=== PATIENT | female | born 2000 | race Caucasian/White ===

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

== ENCOUNTER 2020-10-26 12:27 | Emergency (ER) | payer OTHER ==
[~2020-10-26] VITALS: Ht 177.8 cm; Wt 63.5 kg
--- NOTE | 2020-10-26 12:34 | NUR ---
PT AMBULATED TO BED 07
[2020-10-26 12:36] VITALS: BP 124/69
[2020-10-26] MEDS ORDERED: DICYCLOMINE HCL LIQUID 20 MG, ALUMINUM HYD/MAG/SIMETHICONE 30 ML, LIDOCAINE VISCOUS 2% ... PO ONE ×3 (12:50)
[2020-10-26] MEDS ORDERED: OMEP40EC24 PO (12:51)
--- NOTE | 2020-10-26 12:51 | NUR ---
19 YEAR OLD FEMALE COMPLAINS OF EPIGASTRIC PAIN THAT RADIATES TO THROAT X YESTERDAY. PT STATES PAIN ACCOMPANIED BY NAUSEA, NO VOMITTING. PT AOX4, BREATHING EVEN AND UNLABORED, SKIN WARM AND DRY. BED IN LOWEST POSITION, LOCKED, BED RAIL UPX1. PMH - NAUSEA ALLERGIES - SHELLFISH
[2020-10-26] MEDS ORDERED: ALUMINUM HYD/MAG/SIMETHICONE 30 ML UDC ONE (12:55)
[2020-10-26] MEDS ORDERED: DICYCLOMINE HCL LIQUID 10 MG/5 ML UDC ONE (12:56)
--- NOTE | 2020-10-26 13:09 | NUR ---
PT UNABLE TO URINATE AT THIS TIME. ERMD AWARE
[2020-10-26 13:21] LABS: BASOPHILS % (AUTO) 0.7 % (0.0-2.0); EOSINOPHILS # (AUTO) 0.1 K/uL (0-0.4); EOSINOPHILS % (AUTO) 1.4 % (0.0-4.0); HEMATOCRIT 41.8 % (36-48); LYMPHOCYTES # (AUTO) 1.9 K/uL (2.5-16.5); LYMPHOCYTES % (AUTO) 31.9 % (20.5-51.1); MEAN CORPUSCULAR HEMOGLOBIN 31 pg (27-31); MEAN CORPUSCULAR HGB CONC 34 g/dL (33-37); MEAN CORPUSCULAR VOLUME 92.3 fL (80-94); MONOCYTES # (AUTO) 0.4 K/uL (0.8-1.0); MONOCYTES % (AUTO) 6.8 % (1.7-9.3); NEUTROPHILS # (AUTO) 3.5 K/uL (1.8-7.7); NEUTROPHILS % (AUTO) 59.2 % (42.2-75.2); PLATELET COUNT (AUTO) 149 K/uL (140-450); RED BLOOD CELL COUNT(AUTO) 4.53 MIL/uL (4.20-5.40); RED CELL DISTRIBUTION WIDTH 12.2 % (11.6-13.7)
--- NOTE | 2020-10-26 13:35 | NUR ---
Patient discharged with v/s stable. Written and verbal after care instructions about GERD given and explained. Patient alert, oriented and verbalized understanding of instructions. Ambulatory with steady gait. All questions addressed prior to discharge. ID band removed. Patient advised to follow up with PMD. Rx of prilosec given. Patient educated on indication of medication including possible reaction and side effects. Opportunity to ask questions provided and answered.
[2020-10-26 13:36] VITALS: BP 124/69
[2020-10-26 13:38] LABS: ALBUMIN 4.8 g/dL (3.4-5.0); ANION GAP 11.6 (8-16); CARBON DIOXIDE 27.1 mmol/L (21-32); CREATININE 0.9 mg/dL (0.6-1.3); POTASSIUM 3.7 mmol/L (3.5-5.1); TOTAL BILIRUBIN 0.8 mg/dL (0.0-1.0)
== END 2020-10-26 13:35 | disposition home or self-care (01) ==
LOC: MED 12:27
DX: K21.9 Gastro-esophageal reflux disease without esophagitis (principal); R07.0 Pain in throat; J45.909 Unspecified asthma, uncomplicated; Z79.899 Other long term (current) drug therapy
CPT/HCPCS: 36415; 80053; 81002; 81025; 85025; 99283

== ENCOUNTER 2021-01-19 18:33 | Emergency (ER) | payer OTHER ==
[~2021-01-19] VITALS: Ht 175.3 cm; Wt 63.5 kg
[~2021-01-19 18:33] MED LIST: OMEP40EC24 PO
[2021-01-19 18:47] VITALS: BP 107/77
--- NOTE | 2021-01-19 18:50 | NUR ---
PT TO AWAIT IN TENT
--- NOTE | 2021-01-19 19:25 | NUR ---
NOVEL SWAB OBTAINED AND SENT TO LAB
[2021-01-19] MEDS ORDERED: GUAI-649 PO (19:27)
[2021-01-19] MEDS ORDERED: FLONAS NS (19:27)
--- NOTE | 2021-01-19 19:40 | NUR ---
Patient discharged with v/s stable. Written and verbal after care instructions given and explained. Patient alert, oriented and verbalized understanding of instructions. Ambulatory with steady gait. All questions addressed prior to discharge. ID band removed. Patient advised to follow up with PMD. Rx of FLONASE given. Patient educated on indication of medication including possible reaction and side effects. Opportunity to ask questions provided and answered.
== END 2021-01-19 19:40 | disposition home or self-care (01) ==
LOC: MED 18:33
DX: J06.9 Acute upper respiratory infection, unspecified (principal); Z20.822 Contact with and (suspected) exposure to COVID-19
CPT/HCPCS: 99283; U0003

== ENCOUNTER 2021-06-23 18:26 | Emergency (ER) | payer OTHER ==
[~2021-06-23] VITALS: Ht 177.8 cm; Wt 64.0 kg
[~2021-06-23 18:26] MED LIST changes: +FLONAS NS; +GUAI-649 PO
[2021-06-23 18:33] VITALS: BP 122/81
--- NOTE | 2021-06-23 19:44 | NUR ---
PCR COLLECTED AND TAKEN TO LAB.
--- NOTE | 2021-06-23 19:53 | NUR ---
Patient discharged with v/s stable. Written and verbal after care instructions given and explained. Patient verbalized understanding. Ambulatory with steady gait. All questions addressed prior to discharge. Advised to follow up with PMD.
== END 2021-06-23 19:53 | disposition home or self-care (01) ==
LOC: MED 18:26
DX: B34.9 Viral infection, unspecified (principal); Z20.822 Contact with and (suspected) exposure to COVID-19
CPT/HCPCS: 36415; 99283; U0003